=== PATIENT | male | born 1995 | race Caucasian/White ===

== ENCOUNTER 2018-12-01 19:29 | Emergency (ER) | payer OTHER ==
[2018-12-01 20:08] VITALS: BP 125/68
--- NOTE | 2018-12-01 20:21 | UC ---
Throat Pain/Nasal Derrick HPI - HPI Summary HPI Summary: Ill for over one week with sore throat and cough. Pt thinks he had a fever last night because he awakened drenched in sweat. - History of Current Complaint Chief Complaint: UCRespiratory Stated Complaint: CONGESTION COUGH SORE THROAT EARS Time Seen by Provider: 12/01/18 20:01 Hx Obtained From: Patient Onset/Duration: Gradual Onset Severity: Mild Pain Intensity: 5 Associated Signs & Symptoms: Positive: Fever - Epiglottits Risk Factors Epiglottis Risk Factors: Negative - Allergies/Home Medications Allergies/Adverse Reactions: Allergies Allergy/AdvReac Type Severity Reaction Status Date / Time No Known Allergies Allergy Verified 12/01/18 20:09 Home Medications: Home Medications D-Methorphan/PE/Acetaminophen [Vicks Dayquil Cold & Flu] 2 cap PO ONCE PRN 12/01 [History Confirmed 12/01/18] SUMAtriptan TAB* [Imitrex TAB*] 25 mg PO SEE INSTRUCTIONS PRN 12/01/18 [History Confirmed 12/01/18] PMH/Surg Hx/FS Hx/Imm Hx Previously Healthy: Yes - Surgical History Surgical History: None - Family History Known Family History: Positive: Diabetes - Social History Occupation: Student Alcohol Use: Occasionally Substance Use Type: None Smoking Status (MU): Never Smoked Tobacco Have You Smoked in the Last Year: No - Immunization History Vaccination Up to Date: Yes Review of Systems All Other Systems Reviewed And Are Negative: Yes Constitutional: Positive: Fever ENT: Positive: Sore Throat Respiratory: Positive: Cough Is Patient Immunocompromised?: No Physical Exam Triage Information Reviewed: Yes Appearance: Well-Appearing, No Pain Distress, Well-Nourished Vital Signs: Initial Vital Signs Temp 98.1 F 12/01/18 20:01 Pulse 84 12/01/18 20:01 Resp 18 12/01/18 20:01 BP 125/68 12/01/18 20:01 Pulse Ox 100 12/01/18 20:01 Vital Signs Reviewed: Yes Eye Exam: Normal ENT: Positive: Pharyngeal erythema - Mild erythema pharynx, TMs normal, Uvula midline. Negative: Tonsillar swelling, Tonsillar exudate, Trismus, Muffled voice, Hoarse voice Neck exam: Normal Neck: Positive: Supple, Nontender, Enlarged Nodes @ - Left tonsillar lymph node enlargement Respiratory: Positive: Normal breath sounds, No respiratory distress, No accessory muscle use, Rhonchi - Very mild rhonchi LLL posteriorly Cardiovascular: Positive: RRR, No Murmur, Pulses Normal, Brisk Capillary Refill Abdominal Exam: Normal Bowel Sounds: Positive: Present Musculoskeletal Exam: Normal Neurological Exam: Normal Psychological Exam: Normal Skin Exam: Normal Throat Pain/Nasal Course/Dx - Course Course Of Treatment: CXR: Read by myself and Dr. La as possible LLL infiltrate. Rapid strep was negative. - Differential Dx/Diagnosis Provider Diagnosis: Community acquired pneumonia Discharge - Sign-Out/Discharge Documenting (check all that apply): Patient Departure All imaging exams completed and their final reports reviewed: No - Discharge Plan Condition: Good Disposition: HOME Prescriptions: Azithromycin TAB* [Zithromax TAB (Z-MALISSA) 250 mg #6 tabs] 250 mg PO DAILY 4 Days #4 tab Patient Education Materials: Pneumonia (ED) Referrals: [facility] [Outside] No Primary Care Phys,NOPCP [Primary Care Provider] - Additional Instructions: Increase fluids, rest, follow up with your doctor if no improvement in 4-5 days. - Billing Disposition and Condition Condition: GOOD Disposition: Home
[2018-12-01] MEDS ORDERED: Azithromycin TAB* 250 MG PO ONE (20:53)
--- NOTE | 2018-12-02 08:47 | UC ---
- Progress Note Progress Note: Patient Name: OUMOU SHIELDS Medical Record#: [id number] Ordering Physician: Liliam Hoover NP Acct.#: [id number] : 1995 Age: 22 Sex: M Location: [facility] Exam Date: 12/01/182014 ADM Status: DEP ER Order Information: CHEST PA & LAT 2 VWS Accession Number: [id number] CPT: 71020 Indication: Cough, fever. 2 views of the chest including dual energy PA views demonstrate no mediastinal shift. Heart is of normal size and configuration. Lung hinojosa are clear. IMPRESSION: No active cardiopulmonary disease is noted. R2 Preliminary Imaging Read R2 <Electronically signed by Millie Portillo MD in OV> 12/02/18744 Dictated By: Millie Portillo MD Dictated Date/Time: 12/02/18744 Transcribed Date/Time: 12/02/18743 Copy to: CC:Liliam Hoover AUDITING CONTROL CLERK; No Primary Care Phys,NOPCP ; Palomo La MD Imaging - [facility] Imaging - [facility] [address] [place] [address] ph ([phone]) ph ([phone]) ph ([phone]) This report is only to be considered final once signed by the Provider(s) as displayed in the "<Electronically Signed by >" field (s). Absence of a signature indicates the report is in a draft status and still needs to be finalized. In the event this document was created by someone other than the signing Provider, the individual initiating the document will be listed in the "Entered by:" or "Dictated by:" [email or web address]. 1 of 1 Course/Dx - Diagnoses Provider Diagnoses: Community acquired pneumonia Discharge - Sign-Out/Discharge Documenting (check all that apply): Post-Discharge Follow Up All imaging exams completed and their final reports reviewed: Yes - Discharge Plan Condition: Good Disposition: HOME Prescriptions: Azithromycin TAB* [Zithromax TAB (Z-MALISSA) 250 mg #6 tabs] 250 mg PO DAILY 4 Days #4 tab Patient Education Materials: Pneumonia (ED) Referrals: [facility] [Outside] No Primary Care Phys,NOPCP [Primary Care Provider] - Additional Instructions: Increase fluids, rest, follow up with your doctor if no improvement in 4-5 days. - Billing Disposition and Condition Condition: GOOD Disposition: Home
== END 2018-12-01 21:05 | disposition home or self-care (01) ==
LOC: UCCORT 19:29
DX: J18.9 Pneumonia, unspecified organism (principal)
CPT/HCPCS: 71046; 87651; 99212; A9270-GY; G0463

== ENCOUNTER 2019-04-21 19:31 | Emergency (ER) | payer OTHER ==
[2019-04-21 19:47] VITALS: BP 136/76
--- NOTE | 2019-04-21 20:36 | ED ---
GI/ HPI - HPI Summary HPI Summary: 23 yr old male with the complaint of upset stomach, emesis times one last night and several watery diarrhea today. No abdominal pain at this point. he gets cramps in the left side of abdomen prior to having the diarrhea episodes. The patient denies fever and chills. The patient had a pimple form on the right cheek, and he popped it with pus that came out and now has mild swelling and erythema as well to the area. He denies fever and chills. He denies other complaints. - History of Current Complaint Chief Complaint: UCGI Time Seen by Provider: 04/21/19 20:21 Stated Complaint: STOMACH ACHE/SKIN COMPLAINT Pain Intensity: 1 - Allergy/Home Medications Allergies/Adverse Reactions: Allergies Allergy/AdvReac Type Severity Reaction Status Date / Time No Known Allergies Allergy Verified 04/21/19 19:47 PMH/Surg Hx/FS Hx/Imm Hx Endocrine/Hematology History: Denies: Hx Diabetes, Hx Thyroid Disease Cardiovascular History: Denies: Hx Hypertension, Hx Pacemaker/ICD Respiratory History: Denies: Hx Asthma, Hx Chronic Obstructive Pulmonary Disease (COPD) GI History: Denies: Hx Ulcer History: Denies: Hx Dialysis, Hx Renal Disease Sensory History: Denies: Hx Hearing Aid Psychiatric History: Denies: Hx Panic Disorder Infectious Disease History: No Infectious Disease History: Denies: Hx Hepatitis, Hx Human Immunodeficiency Virus (HIV), Traveled Outside the in Last 30 Days - Family History Known Family History: Positive: Diabetes - Social History Occupation: Employed Full-time Alcohol Use: Occasionally Substance Use Type: Reports: None Smoking Status (MU): Never Smoked Tobacco Have You Smoked in the Last Year: No Review of Systems Constitutional: Negative Positive: Vomiting, Diarrhea, Nausea Positive: Other - right cheek small furuncle. All Other Systems Reviewed And Are Negative: Yes Physical Exam Triage Information Reviewed: Yes Vital Signs On Initial Exam: Initial Vitals Temp Pulse Resp BP Pulse Ox 98.3 F 78 15 136/76 100 04/21/19 19:43 04/21/19 19:43 04/21/19 19:43 04/21/19 19:43 04/21/19 19:43 Vital Signs Reviewed: Yes Appearance: Positive: Well-Appearing, No Pain Distress, Well-Nourished Skin: Positive: Warm, Skin Color Reflects Adequate Perfusion, Other - small furuncle right cheek. Head/Face: Positive: Normal Head/Face Inspection Eyes: Positive: EOMI ENT: Positive: Normal ENT inspection Neck: Positive: Nontender Respiratory/Lung Sounds: Positive: Clear to Auscultation, Breath Sounds Present Cardiovascular: Positive: RRR. Negative: Murmur Abdomen Description: Negative: Distended Musculoskeletal: Positive: Strength/ROM Intact Neurological: Positive: Sensory/Motor Intact, Alert, Oriented to Person Place, Time, CN Intact II-III, Normal Gait, Speech Normal Psychiatric: Positive: Normal - Odalis Coma Scale Best Eye Response: 4 - Spontaneous Best Motor Response: 6 - Obeys Commands Best Verbal Response: 5 - Oriented Coma Scale Total: 15 Diagnostics - Vital Signs Vital Signs Temp Pulse Resp BP Pulse Ox 04/21/19 19:43 98.3 F 78 15 136/76 100 - Laboratory Lab Statement: Any lab studies that have been ordered have been reviewed, and results considered in the medical decision making process. GIGU Course/Dx - Course Course Of Treatment: 23 yr old with gastroenteritis, and also furuncle. Rx with Bactrim DS. FU with PMD referral. - Diagnoses Provider Diagnoses: Furuncle of face, Gastroenteritis Discharge ED - Sign-Out/Discharge Documenting (check all that apply): Patient Departure All imaging exams completed and their final reports reviewed: No Studies - Discharge Plan Condition: Good Disposition: HOME Prescriptions: Sulfamethox/Trimethoprim DS* [Bactrim DS 800/160 TAB*] 1 tab PO BID #20 tab Patient Education Materials: Gastroenteritis (ED), Furunculosis and Carbunculosis (ED) Referrals: No Primary Care Phys,NOPCP [Primary Care Provider] - [facility] [Outside] - 2 Days - Billing Disposition and Condition Condition: GOOD Disposition: Home
== END 2019-04-21 20:38 | disposition home or self-care (01) ==
LOC: UCCORT 19:31
DX: L02.02 Furuncle of face (principal); K52.9 Noninfective gastroenteritis and colitis, unspecified
CPT/HCPCS: 99212; G0463